=== PATIENT | female | born 1975 | race African-American/Black ===

== ENCOUNTER 2020-06-19 23:19 | Inpatient (IN) ==
[2020-06-20] MEDS ORDERED: SODIUM CHLORIDE 0.9% 500 ML IV STA ×2 (00:39→03:39)
[2020-06-20 00:54] LABS: Basophils % 0.5 % (0.0-0.8); Eosinophils % 0.1 % (0.00-10.9); Hematocrit 44.9 VOL% (35.7-47.0); Hemoglobin 15.9 GM/DL (12.0-16.0); Immature Granulocytes % 0.7 %; Immature Granulocytes Absolute 0.05 #; Lymphocytes # 1.8 10*3/uL (1.4-4.0); Lymphocytes % 23.5 % (21.3-54.2); Mean Corpuscular HGB Conc 35.4 GM/DL (32-36); Mean Corpuscular Volume 88.2 FL (87-102); Mean Platelet Volume 12.6 FL (9.6-12.0); Monocytes % 5.3 % (1.7-12.7); Neutrophils % 69.9 % (38.7-73.9); Platelet Count 237 T/CUMM (130-400); Red Blood Count 5.09 MC/CUMM (3.8-5.5); Red Cell Distribution Width 11.5 % (9.3-17.3); White Blood Count 7.6 T/CUMM (4-12)
[2020-06-20 01:10] LABS: Alanine Aminotransferase 28 U/L (13-56); Albumin 3.8 G/DL (3.4-5.0); Alkaline Phosphatase 115 U/L (45-117); Aspartate Amino Transferase 15 U/L (0-37); Blood Urea Nitrogen 20 MG/DL (7-18); Calcium 10.1 MG/DL (8.5-10.1); Carbon Dioxide 21 MMOL/L (21-32); Estimated Glom Filtration Rate 77 ML/MIN; Osmolality,Calculated 300.5 MOS/KG (273-304); Potassium 3.9 MMOL/L (3.5-5.1); Sodium 132 MMOL/L (136-145); Total Protein 8.8 G/DL (6.4-8.3)
[2020-06-20 01:12] LABS: Glucose 713 MG/DL (74-106)
[2020-06-20] MEDS ORDERED: INSULIN REGULAR 100 UNIT/ML IV STA (01:33)
[2020-06-20] MEDS ORDERED: SODIUM CHLORIDE 0.9% 1,000 ML IV STA (01:34)
[2020-06-20 01:39] LABS: Barbiturates Screen,Urine Negative (Negative); Benzodiazepines Screen,Urine Negative (Negative); Cannabinoid Screen,Urine Negative (Negative); Opiate Screen,Urine Negative (Negative); Phencyclidine Screen,Urine Negative (Negative)
[2020-06-20 01:41] LABS: Bacteria,Urine Occasional /HPF (Few); Bilirubin,Urine Negative (Negative); Blood, Urine Negative (Negative); Glucose,Urine (UA) >=500 mg/dL (Negative); Ketones,Urine 20 mg/dL (Negative); Mucus,Urine Occasional /LPF (Occasional); Nitrite,Urine Negative (Negative); Protein,Urine Negative; RBC,Urine 1 /HPF (0-4); Squamous Epithelial Cell,Urine Occasional /HPF (0-10); Urine Appearance CLEAR (Clear); Urine Color Colorless (Yellow); Urine Urobilinogen < 2.0 EU/DL (0.2-1.0); WBC,Urine 1 /HPF (0-6)
[2020-06-20 01:59] LABS: PT Patient Result 10.4 SECS (9.8-11.9)
[2020-06-20 02:40] LABS: ABG Base Excess -6.3 MMOL/L (-2.5-2.5); ABG HCO3 19.3 MMOL/L (20-26); ABG Oxygen Saturation 95.5 % (95-100); ABG PCO2 33.1 MM HG (35-48); ABG PH 7.351 (7.35-7.45); ABG TCO2 15.6 MMOL/L (23-27); Allen Test Positive; Pt O2 Delivery Device Room Air
[2020-06-20] MEDS ORDERED: INSULIN REGULAR 100 UNIT/ML IV ONE (03:40)
[2020-06-20] MEDS ORDERED: GLUCAGON 1 MG VIAL IM PRN (03:51)
[2020-06-20] MEDS ORDERED: ACETAMINOPHEN 325 MG TABLET PO PRN (03:51)
[2020-06-20] MEDS ORDERED: DOCUSATE SODIUM 100 MG CAPSULE PO PRN (03:51)
[2020-06-20] MEDS ORDERED: ONDANSETRON 4 MG/2 ML VIAL IV PRN (03:51)
[2020-06-20] MEDS ORDERED: DEXTROSE 50% 25 GM/50 ML VIAL IV PRN (03:51)
[2020-06-20] MEDS ORDERED: MAGNESIUM SULF RIDER 4 GM in PREMIX 1 EACH IV PRN (04:00)
[2020-06-20] MEDS ORDERED: POTASSIUM CHLORIDE 20 MEQ TABLET PO PRN (04:00)
[2020-06-20] MEDS ORDERED: SODIUM CHLORIDE 0.9% 1,000 ML IV SCH (04:00)
[2020-06-20] MEDS ORDERED: MAGNESIUM SULF RIDER 2 GM in PREMIX 1 EACH IV PRN (04:00)
[2020-06-20 08:09] LABS: Calcium 8.7 MG/DL (8.5-10.1); Osmolality,Calculated 291.4 MOS/KG (273-304); Potassium 3.4 MMOL/L (3.5-5.1)
[2020-06-20] MEDS: INSULIN LISPRO 100 UNIT/ML SUBCUT SCH ×7 (08:33→21:29)
[2020-06-20] MEDS: ENOXAPARIN 40 MG/0.4 ML SYRINGE SUBCUT SCH (08:33)
[2020-06-20] MEDS ORDERED: UBROGEPANT 50 MG PO PRN (12:06)
[2020-06-20] MEDS: MULTIVITAMIN (BEROCCA) TABLET PO SCH (14:48)
[2020-06-20] MEDS: PROPRANOLOL 40 MG TABLET PO SCH (14:48)
[2020-06-20] MEDS: prednisoLONE ACETATE 1% OPH SUSP 5 ML BOTTLE BOTH EYES SCH ×3 (14:48→21:30)
[2020-06-20] MEDS: ZINC GLUCONATE 50 MG TABLET PO SCH (14:49)
[2020-06-20] MEDS ORDERED: INSULIN GLARGINE 100 UNIT/ML SUBCUT SCH (21:00)
[2020-06-21 06:07] LABS: Basophils % 0.7 % (0.0-0.8); Eosinophils % 0.7 % (0.00-10.9); Hematocrit 36.6 VOL% (35.7-47.0); Immature Granulocytes % 0.3 %; Immature Granulocytes Absolute 0.02 #; Lymphocytes # 2.8 10*3/uL (1.4-4.0); Lymphocytes % 47.4 % (21.3-54.2); Mean Corpuscular HGB Conc 35.8 GM/DL (32-36); Mean Corpuscular Volume 89.3 FL (87-102); Mean Platelet Volume 12.4 FL (9.6-12.0); Monocytes % 6.2 % (1.7-12.7); Neutrophils % 44.7 % (38.7-73.9); Red Cell Distribution Width 11.8 % (9.3-17.3); White Blood Count 5.8 T/CUMM (4-12)
[2020-06-21 06:14] LABS: Hemoglobin 13.1 GM/DL (12.0-16.0); Platelet Count 147 T/CUMM (130-400)
[2020-06-21 06:31] LABS: Calcium 7.8 MG/DL (8.5-10.1); Osmolality,Calculated 285.4 MOS/KG (273-304); Potassium 3.2 MMOL/L (3.5-5.1); Risk Ratio 3.59; VLDL CHOLESTEROL 25.8 MG/DL
[2020-06-21] MEDS ORDERED: INSULIN GLARGINE 100 UNIT/ML SUBCUT SCH ×2 (08:31→08:32)
[2020-06-21] MEDS ORDERED: POTASSIUM CHLORIDE 20 MEQ TABLET PO ONE (09:00)
[2020-06-21] MEDS: MULTIVITAMIN (BEROCCA) TABLET PO SCH (09:05)
[2020-06-21] MEDS: PROPRANOLOL 40 MG TABLET PO SCH (09:05)
[2020-06-21] MEDS: INSULIN LISPRO 100 UNIT/ML SUBCUT SCH ×4 (09:05→12:07)
[2020-06-21] MEDS: ENOXAPARIN 40 MG/0.4 ML SYRINGE SUBCUT SCH (09:06)
[2020-06-21] MEDS: ZINC GLUCONATE 50 MG TABLET PO SCH (09:06)
[2020-06-21] MEDS: prednisoLONE ACETATE 1% OPH SUSP 5 ML BOTTLE BOTH EYES SCH (09:38)
[2020-06-21 11:37] VITALS: BP 136/78
== END 2020-06-21 14:25 | disposition home or self-care (01) | DRG 638 ==
LOC: EDUNIT# → EDBD → N.ED 23:19 → N.EDINP 06-20 03:11 → N.3E 06-20 04:33
PROVIDERS: ADMIT Internal Medicine; ATTEND Internal Medicine